=== PATIENT | female | born 1985 | race Caucasian/White ===

== ENCOUNTER → 2020-06-17 10:26 | Outpatient (BNVA) | payer OTHER, SELFPAY | PROVIDERS: Visit Provider Urology | DX: N30.10 Interstitial cystitis (chronic) without hematuria (principal); N32.81 Overactive bladder | CPT/HCPCS: 99212 ==

== ENCOUNTER → 2020-08-05 13:55 | Outpatient (BNVA) | payer OTHER, SELFPAY | PROVIDERS: Visit Provider Urology | DX: R39.12 Poor urinary stream (principal); N32.81 Overactive bladder | CPT/HCPCS: 52000; 81002; 99212 ==

== ENCOUNTER → 2020-11-11 11:11 | Outpatient (BNVA) | payer MEDICARE, MEDICAID, SELFPAY | PROVIDERS: Visit Provider Urology ==

== ENCOUNTER → 2020-12-17 09:21 | Outpatient (BNVA) | payer MEDICARE, MEDICAID, SELFPAY | PROVIDERS: Visit Provider Urology | DX: R39.12 Poor urinary stream (principal); N32.81 Overactive bladder | CPT/HCPCS: Q3014 ==

== ENCOUNTER → 2021-03-11 09:22 | Outpatient (BNVA) | payer OTHER, MEDICAID, SELFPAY | PROVIDERS: Visit Provider Urology | DX: R39.12 Poor urinary stream (principal); N30.10 Interstitial cystitis (chronic) without hematuria; N32.81 Overactive bladder | CPT/HCPCS: 99212 ==

== ENCOUNTER → 2021-09-20 10:40 | Outpatient (BNVA) | payer OTHER, MEDICAID, SELFPAY | PROVIDERS: Visit Provider Urology | DX: R39.12 Poor urinary stream (principal); N30.10 Interstitial cystitis (chronic) without hematuria; N32.81 Overactive bladder | CPT/HCPCS: Q3014 ==

== ENCOUNTER → 2022-03-24 08:24 | Outpatient (BNVA) | payer OTHER, MEDICAID, SELFPAY | PROVIDERS: Visit Provider Urology | DX: N30.10 Interstitial cystitis (chronic) without hematuria (principal); N32.81 Overactive bladder | CPT/HCPCS: Q3014 ==

== ENCOUNTER → 2022-09-21 10:06 | Outpatient (BNVA) | payer OTHER, SELFPAY | PROVIDERS: PCP Nurse Practitioner Family; Visit Provider Nurse Practitioner Family | DX: N30.10 Interstitial cystitis (chronic) without hematuria (principal); N32.81 Overactive bladder; R39.12 Poor urinary stream; Z79.899 Other long term (current) drug therapy | CPT/HCPCS: 51798; 99212 ==

== ENCOUNTER 2023-07-03 09:18 | Outpatient (AMB) | payer OTHER, SELFPAY ==
--- NOTE | 2023-07-03 10:06 | MHC.OFFVIS ---
Intake Intake Visit Reasons: 6M PVR/Med Review Intake Note: Patient is Present for Follow Up PVR/Med Review Urology Medication:Myrbetriq,Vesicare Antibiotic Allergies:None Blood Thinners: None Pharmacy: [facility] PVR: 0 Allergies carbamazepine Allergy (Unknown, Verified 07/03/23 10:24) Unknown clonazepam Allergy (Unknown, Verified 07/03/23 10:24) Unknown HPI HPI Comments History of Present Illness Details Torri is a pleasant 37-year-old female patient of Dr. Wilks. She presents to the office today for follow-up of her overactive bladder. - She has a background history of bipolar disease with long-term antipsychotic use. She is no longer at skilled nursing. Living by herself. Continues with good response to Myrbetriq with high-dose VESIcare. PVR 0 cc When asked she denies urinary urgency, urinary frequency, incontinence, nocturia, hematuria, dysuria, foul smelling urine, changes to urinary stream, flank pain, fever, and or chills. She discusses how limiting her caffeine/tea intake has extremely helped her urinary symptoms along with OAB medications. She offers no concerns or complaints at this time. Overactive bladder Follow-up evaluation with current medications Does empty when bladder is full After a great deal experimentation combination of alpha-antonio, anticholinergic and beta agonist appeared to be successful Nocturia 1-2 Cystoscopy 08/25 no evidence for interstitial cystitis Does have weak stream secondary to prolonged anticholinergic use for antipsychotics PFSH Medical History Bipolar 1 disorder Overactive bladder Prediabetes Schizoaffective disorder Scoliosis Social History Patient Tobacco Use Status: Never used Tobacco Review of Systems Const Denies chills and Denies fever(s) Card Reports no additional complaints and Denies syncope Resp Denies cough GI Denies abdominal pain and Denies heartburn Reports as per HPI and Denies change in libido Neuro Denies syncope Psych Denies change in libido Endo Denies change in libido Physical Exam Const General: cooperative, healthy appearing, comfortable and no acute distress Orientation/consciousness: patient oriented x3 HEENT Face and sinus: Yes normal facial exam Mouth: moist mucous membranes Neck Neck: Yes normal visual inspection, Yes full ROM and Yes trachea midline Chest Chest palpation & inspection: normal inspection of the chest Resp Effort & Inspection: normal respiratory effort, able to speak in complete sentences and no respiratory distress GI Inspection: Yes normal to inspection Back/Spine/Pelvis Cervical Spine: normal cervical lordosis Thoracic/Lumbar Spine: thoracic and lumbar spine normal to inspection Skin General skin exam: no rashes or lesions noted Neuro General: patient oriented x3, gait normal, tone normal and moves all extremities Extrem General: Yes normal to inspection and Yes capillary refill normal Office Procedures Post Void Residual Post Residual Void Post Void Residual (PVR): 0 25873-Luke Void Residual by ultrasound Assessment & Plan Assessment & Plan (1) Interstitial cystitis: Code(s): N30.10 - Interstitial cystitis (chronic) without hematuria (2) Overactive bladder: Code(s): N32.81 - Overactive bladder (3) Weak urinary stream: Code(s): R39.12 - Poor urinary stream Plan Six-month follow-up nurse-practitioner PVR Orders: Orders AMB Post Void Residual by ultrasound Today N32.81 - Overactive bladder Patient Instructions: Imaging studies, laboratory and physical exam results were discussed and reviewed in detail. No major barriers to patient understanding were identified. An opportunity to ask questions regarding the treatment plan was provided. All questions were answered. The patient expressed understanding and agreement with the above treatment plan. The patient is aware they should contact our office by phone for worsening of their current condition or the appearance of new urologic symptoms. Compliance is encouraged with any medications and followup testing that is ordered. It is a privilege to participate in the urologic care of your patient. If you have any questions or concerns regarding treatment for the above conditions, or other urologic issues, please do not hesitate to contact me. The office telephone contact is [phone]. This note is constructed using voice recognition software. While every effort has been made to ensure accuracy scrap hoist operator errors may have been included. Yours sincerely, Dr Cornelius Pillai MD, [facility] - Urology Providers of Expert, Compassionate Care for the Genitourinary System Coding Level of Care Code Est Pt Level 3 (75128) Diagnoses Interstitial cystitis N30.10 Overactive bladder N32.81 Weak urinary stream R39.12 CPT Codes Post Residual Void - PVR CPT Code: 08666-Brnb Void Residual by ultrasound ([id number])
== END 2023-07-03 10:46 | disposition home or self-care (01) ==
PROVIDERS: Visit Provider Urology
DX: N30.10 Interstitial cystitis (chronic) without hematuria (principal); N32.81 Overactive bladder; R39.12 Poor urinary stream
CPT/HCPCS: 99213

== ENCOUNTER → 2023-07-03 09:18 | Outpatient (BNVA) | payer OTHER, SELFPAY | PROVIDERS: Visit Provider Urology | DX: N30.10 Interstitial cystitis (chronic) without hematuria (principal); N32.81 Overactive bladder; R39.12 Poor urinary stream | CPT/HCPCS: 51798; 99212 ==

== ENCOUNTER 2023-12-31 09:38 | Outpatient (AMB) | payer MEDICARE, MEDICAID, SELFPAY ==
--- NOTE | 2023-12-31 09:56 | A.OFFVIS_ITS ---
Intake Visit Reasons: 6m/PVR Intake Note: Patient is Present for Follow Up PVR/Med Review Urology Medication:Myrbetriq,Vesicare Antibiotic Allergies:None Blood Thinners: None Pharmacy: [email or web address] PVR: 0ml's Youth Director Required: No Accompanied by: Self / Same As Patient Allergies carbamazepine Allergy (Unknown, Verified 12/31/23 11:00) Unknown clonazepam Allergy (Unknown, Verified 12/31/23 11:00) Unknown Medication List - Last Reconciled 12/31/23 by HOMA Lynn mirabegron ER 50 mg PO DAILY 90 days norethindrone acetate 0 mg PO paliperidone palmitate (Invega Sustenna) mg IM solifenacin (Vesicare) 10 mg PO BID 90 days HPI Comments Details: Torri is a pleasant 38-year-old female patient of Dr. Wilks. She presents to the office today for follow-up of her overactive bladder. When asked she reports to be doing and feeling well. She reports compliance with Myrbetriq and VESIcare daily are prescribed. She reports these medication to be working well for her and is very happy with her current voiding peramaters while being on these medications. She has a background history of bipolar disease with long- term antipsychotic use. She is no longer at [facility]. Living by herself. Continues with good response to Myrbetriq with high-dose VESIcare. In office urinalysis results reviewed with the patient today. PVR 0 mL. When asked she denies urinary urgency, urinary frequency, incontinence, nocturia, hematuria, dysuria, foul smelling urine, changes to urinary stream, flank pain, fever, and or chills. She offers no concerns or complaints at this time. Overactive bladder Follow-up evaluation with current medications Does empty when bladder is full After a great deal experimentation combination of alpha-antonio, anticholinergic and beta agonist appeared to be successful Nocturia 1-2 Cystoscopy 08/25 no evidence for interstitial cystitis Does have weak stream secondary to prolonged anticholinergic use for antipsychotics PFSH Medical History Scoliosis Schizoaffective disorder Bipolar 1 disorder Prediabetes Overactive bladder Social History Patient Tobacco Use Status: Never used Tobacco Review of Systems Const All systems reviewed & are unremarkable except as noted in HPI and below Reports no additional complaints Eyes Reports no additional complaints ENT Reports no additional complaints Card Reports no additional complaints Resp Reports no additional complaints GI Reports no additional complaints Reports as per HPI Musc Reports no additional complaints Neuro Reports no additional complaints Psych Reports as per HPI Endo Reports no additional complaints Luc/Lymph Reports no additional complaints Aller/Immun Reports no additional complaints Physical Exam Const General: cooperative, healthy appearing, comfortable, no acute distress, well developed, alert and awake Orientation/consciousness: patient oriented x3 Limitations: no limitations HEENT Head: Yes normal to inspection, Yes normocephalic and Yes atraumatic Ears: hearing grossly normal bilaterally Eyes General: appearance normal, both eyes and all related structures Neck Neck: Yes normal visual inspection and Yes trachea midline Chest Chest palpation & inspection: normal inspection of the chest Resp Effort & Inspection: normal respiratory effort and able to speak in complete sentences Cardio Rate: regular rate GI Inspection: Yes normal to inspection General: Yes no CVA tenderness Back/Spine/Pelvis Back: no CVA tenderness Skin General skin exam: no rashes or lesions noted Neuro General: patient oriented x3 Extrem General: Yes normal to inspection Psych Appearance: grossly normal and well kempt Mental Status: mental status grossly normal Speech and movement: Normal speech and movement present and Clear speech present Affect: normal affect Attitude: cooperative Thought process: Normal thought process present Thought content: Normal thought content present Insight: Fair insight present (Psych) Judgement: Fair judgement present (Psych) Office Procedures Post Void Residual Post Residual Void Post Void Residual (PVR): 0 47713-[id number] Void Residual by ultrasound Results AMB Urinalysis, Automated UA Leukoctes 0 Juanpablo/uL Last Edit by CanaryHop on 12/31/23 10:19 UA Nitrite Negative Last Edit by CanaryHop on 12/31/23 10:19 UA Urobilinogen 0.2 mg/dL Last Edit by CanaryHop on 12/31/23 10:19 UA Protein 15 mg/dL Last Edit by CanaryHop on 12/31/23 10:19 UA pH 6.0 Last Edit by CanaryHop on 12/31/23 10:19 UA Blood 10 Sarthak/uL Last Edit by CanaryHop on 12/31/23 10:19 UA Specific [place] 1.025 Last Edit by Misti Buchanan on 12/31/23 10:19 UA Ketone Negative Last Edit by Misti Buchanan on 12/31/23 10:19 UA Bilirubin 0 mg/dL Last Edit by Misti Montesrosa on 12/31/23 10:19 UA Glucose 0 mg/dL Last Edit by Misti Montesrosa on 12/31/23 10:19 Results Reviewed Results Reviewed: Laboratory Last Values Urine pH (Auto) 6.0 12/31/23 10:18 Specific [place] (Auto) 1.025 12/31/23 10:18 Urine Protein (Auto) 15 mg/dL 12/31/23 10:18 Glucose (UA)(Auto) 0 mg/dL 12/31/23 10:18 Urine Ketones (Auto) Negative 12/31/23 10:18 Urine Blood (Auto) 10 Sarthak/uL 12/31/23 10:18 Urine Nitrite (Auto) Negative 12/31/23 10:18 Urine Bilirubin (Auto) 0 mg/dL 12/31/23 10:18 Urine Urobilinogen (Auto) 0.2 mg/dL 12/31/23 10:18 Leukocyte Esterase (Auto) 0 Juanpablo/uL 12/31/23 10:18 Assessment & Plan Assessment & Plan (1) Overactive bladder: Code(s): N32.81 - Overactive bladder Category: Medical (2) Interstitial cystitis: Code(s): N30.10 - Interstitial cystitis (chronic) without hematuria Category: Medical (3) Weak urinary stream: Code(s): R39.12 - Poor urinary stream Category: Medical Plan In office urinalysis results reviewed with the patient today; as noted above; will send for urine cytology. PVR 0 mL Continue Myrbetriq and VESIcare refills provided as requested. Patient denies any urological issues or concerns at this time. She is happy with her current voiding parameters. Educated, encouraged, instructed on the importance of drinking adequate amount of fluid daily. Follow-up in 6 months with PVR; or sooner with any issues, concerns, and or questions. Orders: Orders Urine Cytology Today N30.10 - Interstitial cystitis (chronic) without hematuria AMB Urinalysis Automated Today Z13.9 - Encounter for screening, unspecified AMB Post Void Residual by ultrasound Today N32.81 - Overactive bladder Medications: Refilled solifenacin (Vesicare) 10 mg PO BID 180 tabs 3RF 90 days mirabegron ER 50 mg PO DAILY 90 tabs 4RF 90 days N32.81 - Overactive bladder Patient Instructions: The patient had an opportunity to ask questions regarding the treatment plan. All questions were answered. Physical exam, labs, and imaging were discussed and reviewed in detail. As well as risks, benefits, and discussion of treatment choices. No major barriers to understanding were identified. The patient expressed understanding and agreement with the above treatment plan. The patient was made aware they should contact our office by phone for worsening of their current condition, the appearance of new symptoms, or with any questions or concerns. Compliance is encouraged with any medications and follow up testing that is ordered. It is a privilege to be allowed the opportunity to participate in? your urological care.? Again, if you have any questions or concerns If you have any questions or concerns please do not hesitate to contact me. The office is [phone]. This note is constructed using voice recognition software. While every effort has been made to ensure accuracy in house cra errors may have been included. Yours sincerely, HOMA Lynn Coding Level of Care Code Est Pt Level 3 (38615) Complex EM visit Add On G2211 Diagnoses Overactive bladder N32.81 Interstitial cystitis N30.10 Weak urinary stream R39.12 CPT Codes Post Residual Void - PVR CPT Code: 95659-Zrsr Void Residual by ultrasound ([id number])
== END 2023-12-31 10:16 | disposition home or self-care (01) ==
PROVIDERS: PCP Nurse Practitioner Family; Visit Provider Nurse Practitioner Family
DX: N32.81 Overactive bladder (principal); N30.10 Interstitial cystitis (chronic) without hematuria; R39.12 Poor urinary stream; Z13.9 Encounter for screening, unspecified
CPT/HCPCS: 99213; G2211

== ENCOUNTER 2023-12-31 09:38 | Outpatient (REF) | payer MEDICARE, MEDICAID, SELFPAY ==
[2023-12-31 16:22] LABS: Urine Cytology See Pathology rpt
== END 2023-12-31 09:39 | disposition home or self-care (01) ==
LOC: HO.LNP 09:38
PROVIDERS: PCP Nurse Practitioner Family; Visit Provider Nurse Practitioner Family
DX: N30.10 Interstitial cystitis (chronic) without hematuria (principal); N32.81 Overactive bladder; R39.12 Poor urinary stream
CPT/HCPCS: 51798; 81003; 88112; 99212

== ENCOUNTER 2024-08-28 08:59 | Outpatient (AMB) | payer OTHER, SELFPAY ==
--- NOTE | 2024-08-28 09:14 | A.OFFVIS_ITS ---
Intake Visit Reasons: 6 month follow up/ PVR Intake Note: Patient is Present fora 6 month follow up/PVR Urology Medication:Myrbetriq,Vesicare Antibiotic Allergies:None Blood Thinners: None PVR:0ml Intellectual Property Lawyer Required: No Accompanied by: Self / Same As Patient Allergies carbamazepine Allergy (Unknown, Verified 08/28/24 09:17) Unknown clonazepam Allergy (Unknown, Verified 08/28/24 09:17) Unknown HPI Comments Details: Torri is a pleasant 37-year-old female patient of Dr. Wilks. She presents to the office today for follow-up of her overactive bladder. - She has a background history of bipolar disease with long-term antipsychotic use. [facility] Living by herself. Continues with good response to Myrbetriq 15 mg with high-dose solifenacin PVR 0 cc, UA negative When asked she denies urinary urgency, urinary frequency, incontinence, nocturia, hematuria, dysuria, foul smelling urine, changes to urinary stream, flank pain, fever, and or chills. She discusses how limiting her caffeine/tea intake has extremely helped her urinary symptoms along with OAB medications. She offers no concerns or complaints at this time. Continue Q six-month review Overactive bladder Follow-up evaluation with current medications Does empty when bladder is full After a great deal experimentation combination of alpha-antonio, anticholinergic and beta agonist appeared to be successful Nocturia 1-2 Cystoscopy 08/25 no evidence for interstitial cystitis Does have weak stream secondary to prolonged anticholinergic use for antipsychotics PFSH Medical History Scoliosis Schizoaffective disorder Bipolar 1 disorder Prediabetes Overactive bladder Social History Patient Tobacco Use Status: Never used Tobacco Review of Systems Const Denies chills and Denies fever(s) Card Reports no additional complaints and Denies syncope Resp Denies cough GI Denies abdominal pain and Denies heartburn Reports as per HPI and Denies change in libido Neuro Denies syncope Psych Denies change in libido Endo Denies change in libido Physical Exam Const General: cooperative, healthy appearing, comfortable and no acute distress Orientation/consciousness: patient oriented x3 HEENT Face and sinus: Yes normal facial exam Mouth: moist mucous membranes Neck Neck: Yes normal visual inspection, Yes full ROM and Yes trachea midline Chest Chest palpation & inspection: normal inspection of the chest Resp Effort & Inspection: normal respiratory effort, able to speak in complete sentences and no respiratory distress GI Inspection: Yes normal to inspection Back/Spine/Pelvis Cervical Spine: normal cervical lordosis Thoracic/Lumbar Spine: thoracic and lumbar spine normal to inspection Skin General skin exam: no rashes or lesions noted Neuro General: patient oriented x3, gait normal, tone normal and moves all extremities Extrem General: Yes normal to inspection and Yes capillary refill normal Assessment & Plan Assessment & Plan (1) Interstitial cystitis: Code(s): N30.10 - Interstitial cystitis (chronic) without hematuria Category: Medical (2) Overactive bladder: Code(s): N32.81 - Overactive bladder Category: Medical Plan Six-month follow-up nurse-practitioner Patient Instructions: This note is constructed using voice recognition software. While every effort has been made to ensure accuracy refund specialist errors may have been included. Imaging studies, laboratory and physical exam results were discussed and reviewed in detail. No major barriers to patient understanding were identified. An opportunity to ask questions regarding the treatment plan was provided. All questions were answered. The patient expressed understanding and agreement with the above treatment plan. The patient is aware they should contact our office by phone for worsening of their current condition or the appearance of new urologic symptoms. Compliance is encouraged with any medications and followup testing that is ordered. It is a privilege to participate in the urologic care of your patient. If you have any questions or concerns regarding treatment for the above conditions, or other urologic issues, please do not hesitate to contact me. The office telephone contact is [phone]. Sincerely, Dr Cornelius Pillai MD, [facility] - Urology Compassionate Specialist Care for the Genitourinary System Coding Level of Care Code Est Pt Level 3 (20236) Complex EM visit Add On G2211 Diagnoses Interstitial cystitis N30.10 Overactive bladder N32.81
== END 2024-08-28 09:49 | disposition home or self-care (01) ==
LOC: HO.HUSH 09:00
PROVIDERS: PCP Nurse Practitioner Family; Visit Provider Urology
DX: N30.10 Interstitial cystitis (chronic) without hematuria (principal); N32.81 Overactive bladder; Z13.9 Encounter for screening, unspecified
CPT/HCPCS: 99213; G2211

== ENCOUNTER → 2024-08-28 08:59 | Outpatient (BNVA) | payer OTHER, SELFPAY | PROVIDERS: PCP Nurse Practitioner Family; Visit Provider Urology | DX: N30.10 Interstitial cystitis (chronic) without hematuria (principal); N32.81 Overactive bladder | CPT/HCPCS: 51798; 81003; 99212 ==

== ENCOUNTER 2025-03-02 09:20 | Outpatient (AMB) | payer OTHER, SELFPAY ==
--- NOTE | 2025-03-02 09:23 | A.OFFVIS_ITS ---
Intake Visit Reasons: 6m/PVR/UA Intake Note: Patient is present for 6M/PVR/UA Urology Medication:MYRBETRIQ ER,SOLIFENACIN Antibiotic Allergy:NONE Blood Thinner:NONE TODAY'S PVR:26ML'S Staff Veterinarian Required: No Allergies carbamazepine Allergy (Unknown, Verified 03/02/25 09:49) Unknown clonazepam Allergy (Unknown, Verified 03/02/25 09:49) Unknown Medication List - Last Reconciled 03/02/25 by HOMA Lynn acetaminophen (Tylenol Extra Strength) 500 mg PO Q6H PRN Myrbetriq ER (mirabegron) 50 mg PO DAILY 90 days NS norethindrone acetate 0 mg PO paliperidone palmitate (Invega Sustenna) mg IM solifenacin (Vesicare) 10 mg PO BID 90 days HPI Comments Details: Torri is a pleasant 39-year-old female patient of Dr. Wilks. She presents to the office today for follow-up of her overactive bladder. When asked she reports to be doing and feeling well. She reports compliance with Myrbetriq and VESIcare daily are prescribed. She reports these medication to be working well for her and is very happy with her current voiding peramaters while being on these medications. She has a background history of bipolar disease with long- term antipsychotic use. She is no longer at intermediate. Living by herself. Cont inues with good response to Myrbetriq with high-dose VESIcare. In office urinalysis results reviewed with the patient today. PVR 26 mL. When asked she denies urinary urgency, urinary frequency, incontinence, nocturia, hematuria, dysuria, foul smelling urine, changes to urinary stream, flank pain, fever, and or chills. She reports knowing her bladder triggers and has been avoiding juices and carbonated drinks which has been helpful. She offers no concerns or complaints at this time. Overactive bladder Follow-up evaluation with current medications Does empty when bladder is full After a great deal experimentation combination of alpha-antonio, anticholinergic and beta agonist appeared to be successful Nocturia 1-2 Cystoscopy 08/25 no evidence for interstitial cystitis Does have weak stream secondary to prolonged anticholinergic use for antipsychotics PFSH Medical History Scoliosis Schizoaffective disorder Bipolar 1 disorder Prediabetes Overactive bladder Social History Patient Tobacco Use Status: Never used Tobacco Review of Systems Const All systems reviewed & are unremarkable except as noted in HPI and below Physical Exam Const General: cooperative, healthy appearing, comfortable, no acute distress, well developed, alert and awake Orientation/consciousness: patient oriented x3 Limitations: no limitations HEENT Head: Yes normal to inspection, Yes normocephalic and Yes atraumatic Ears: hearing grossly normal bilaterally Eyes General: appearance normal, both eyes and all related structures Neck Neck: Yes normal visual inspection and Yes trachea midline Chest Chest palpation & inspection: normal inspection of the chest Resp Effort & Inspection: normal respiratory effort and able to speak in complete sentences Cardio Rate: regular rate GI Inspection: Yes normal to inspection General: Yes no CVA tenderness Back/Spine/Pelvis Back: no CVA tenderness Skin General skin exam: no rashes or lesions noted Neuro General: patient oriented x3 Extrem General: Yes normal to inspection Psych Appearance: grossly normal and well kempt Mental Status: mental status grossly normal Speech and movement: Normal speech and movement present and Clear speech present Affect: normal affect Attitude: cooperative Thought process: Normal thought process present Thought content: Normal thought content present Insight: Fair insight present (Psych) Judgement: Fair judgement present (Psych) Office Procedures Post Void Residual Post Residual Void Post Void Residual (PVR): 26 [id number] Void Residual by ultrasound Results AMB Urinalysis, Automated UA Leukoctes 0 Juanpablo/uL Last Edit by ZAHRA Hodgson on 03/02/25 09:52 UA Nitrite Negative Last Edit by ZAHRA Hodgson on 03/02/25 09:52 UA Urobilinogen 0.2 mg/dL Last Edit by ZAHRA Hodgson on 03/02/25 09:5 2 UA Protein 30 mg/dL Last Edit by ZAHRA Hodgson on 03/02/25 09:52 UA pH 6.0 Last Edit by ZAHRA Hodgson on 03/02/25 09:52 UA Blood 0 Sarthak/uL Last Edit by ZAHRA Hodgson on 03/02/25 09:52 UA Specific [place] 1.030 Last Edit by ZAHRA Hodgson on 03/02/25 09: 52 UA Ketone Negative Last Edit by ZAHRA Hodgson on 03/02/25 09:52 UA Bilirubin 0 mg/dL Last Edit by ZAHRA Hodgson on 03/02/25 09:52 UA Glucose 0 mg/dL Last Edit by ZAHRA Hodgson on 03/02/25 09:52 Assessment & Plan Assessment & Plan (1) Overactive bladder: Code(s): N32.81 - Overactive bladder Category: Medical (2) Interstitial cystitis: Code(s): N30.10 - Interstitial cystitis (chronic) without hematuria Category: Medical (3) Weak urinary stream: Code(s): R39.12 - Poor urinary stream Category: Medical Plan In office urinalysis results reviewed with the patient today; as noted above; will send for urine cytology. PVR 26 mL Continue Myrbetriq and VESIcare refills provided as requested. Patient denies any urological issues or concerns at this time. She is happy with her current voiding parameters. Educated, encouraged, instructed on the importance of drinking adequate amount of fluid daily. Follow-up in 6 months with PVR; or sooner with any issues, concerns, and or questions. Orders: Orders AMB Urinalysis Automated Today Z13.9 - Encounter for screening, unspecified Medications: Refilled Myrbetriq ER (mirabegron) Brand: Myrbetriq. 50 mg PO DAILY 90 tabs 3RF 90 days NS N32.81 - Overactive bladder solifenacin (Vesicare) 10 mg PO BID 180 tabs 3RF 90 days N30.10 - Interstitial cystitis (chronic) without hematuria Patient Instructions: The patient had an opportunity to ask questions regarding the treatment plan. All questions were answered. Physical exam, labs, and imaging were discussed and reviewed in detail. As well as risks, benefits, and discussion of treatment choices. No major barriers to understanding were identified. The patient expressed understanding and agreement with the above treatment plan. The patient was made aware they should contact our office by phone for worsening of their current condition, the appearance of new symptoms, or with any questions or concerns. Compliance is encouraged with any medications and follow up testing that is ordered. It is a privilege to be allowed the opportunity to participate in? your urological care.? Again, if you have any questions or concerns If you have any questions or concerns please do not hesitate to contact me. The office is [phone]. This note is constructed using voice recognition software. While every effort has been made to ensure accuracy health services manager errors may have been included. Yours sincerely, HOMA Lynn Coding Level of Care Code Est Pt Level 3 (00414) Complex EM visit Add On G2211 Diagnoses Overactive bladder N32.81 Interstitial cystitis N30.10 Weak urinary stream R39.12 CPT Codes Post Residual Void - PVR CPT Code: 44129-Imb[facility] Void Residual by ultrasound ([id number])
== END 2025-03-02 10:11 | disposition home or self-care (01) ==
LOC: HO.HUSH 09:20
PROVIDERS: PCP Nurse Practitioner Family; Visit Provider Nurse Practitioner Family
DX: N32.81 Overactive bladder (principal); N30.10 Interstitial cystitis (chronic) without hematuria; R39.12 Poor urinary stream; Z13.9 Encounter for screening, unspecified
CPT/HCPCS: 99213; G2211

== ENCOUNTER → 2025-03-02 09:20 | Outpatient (BNVA) | payer OTHER, SELFPAY | PROVIDERS: PCP Nurse Practitioner Family; Visit Provider Nurse Practitioner Family | DX: N32.81 Overactive bladder (principal); N30.10 Interstitial cystitis (chronic) without hematuria; R39.12 Poor urinary stream | CPT/HCPCS: 51798; 81003; 99212 ==